=== PATIENT | male | born 1945 | race Caucasian/White ===

== ENCOUNTER 2021-04-17 07:39 | Outpatient (CLI) | payer MEDICARE | END 2021-04-17 07:40 | disposition home or self-care (01) | LOC: CSHULT 07:39 | PROVIDERS: ATTEND Internal Medicine Gastroenterology | DX: K21.9 Gastro-esophageal reflux disease without esophagitis (principal); K76.0 Fatty (change of) liver, not elsewhere classified; R19.4 Change in bowel habit; R10.9 Unspecified abdominal pain; K80.20 Calculus of gallbladder without cholecystitis without obstruction; N28.1 Cyst of kidney, acquired | CPT/HCPCS: 76700 ==

== ENCOUNTER 2021-10-03 08:05 | Outpatient (CLI) | payer MEDICARE ==
[2021-10-03] MEDS ORDERED: Iopamidol 300 61% 100 ML VIAL FS ONE (14:08)
== END 2021-10-03 08:06 | disposition home or self-care (01) ==
LOC: CSHCT 08:05
PROVIDERS: ATTEND Surgery
DX: R10.9 Unspecified abdominal pain (principal)
CPT/HCPCS: 74177; 82565; Q9967